=== PATIENT | male | born 1990 | race Caucasian/White ===

== ENCOUNTER 2020-05-26 18:19 | Emergency (ER) | payer SELFPAY ==
[~2020-05-26] VITALS: Ht 167.6 cm; Wt 72.6 kg
[2020-05-26 18:22] VITALS: Ht 167.6 cm; Wt 72.6 kg
[2020-05-26 19:12] LABS: AMPHETAMINE QUAL UR NONE DETECTED (See below)
[2020-05-26 19:37] LABS: CALCIUM 8.8 mg/dL (8.5-10.1); CARBON DIOXIDE 23.9 mmol/L (21-32); CHLORIDE SERUM 91 mmol/L (98-107); CREATININE SERUM 1.4 mg/dL (0.7-1.3); GFR1 > 60 mL/min; GLUCOSE SERUM 133 mg/dL (74-106); POTASSIUM SERUM 3.1 mmol/L (3.5-5.1); SODIUM SERUM 127 mmol/L (136-145)
[2020-05-26 19:41] LABS: ALBUMIN 3.7 g/dL (3.4-5.0); ALKALINE PHOSPHATASE 94 U/L (46-116); ALT/SGPT 69 U/L (16-63); AST/SGOT 40 U/L (15-37); BILIRUBIN TOTAL 0.8 mg/dL (0.20-1.00); TOTAL PROTEIN, SERUM 6.9 g/dL (6.4-8.2)
[2020-05-26 19:43] LABS: BASOPHIL % 0.1 % (0-2); PLATELET COUNT 274 x10^3mcL (130-400); RED CELL DISTRIBUTION WIDTH 14.8 % (11.5-14.5)
[2020-05-27 07:30] VITALS: BP 101/69
== END 2020-05-27 07:30 | disposition home or self-care (01) ==
LOC: ED 18:19
PROVIDERS: Emergency Medicine
DX: R41.0 Disorientation, unspecified (principal); F29 Unspecified psychosis not due to a substance or known physiological condition
CPT/HCPCS: 82962; G0480; J1200; J1630; J2060; J3490; J7030; Q0092

== ENCOUNTER → 2020-05-26 | Emergency (ER) | payer OTHER | LOC: ED 18:19 | DX: Z02.89 Encounter for other administrative examinations (principal) ==